=== PATIENT | male | born 1950 | race Caucasian/White ===

== ENCOUNTER 2017-04-08 19:59 | Emergency (ER) | payer MEDICARE, OTHER ==
[~2017-04-08] VITALS: Ht 175.3 cm; Wt 118.0 kg
[~2017-04-08 19:59] MED LIST: HYDR25TA PO; LISI-662 PO; METF500T4 PO; METO25 PO
[2017-04-08] MEDS ORDERED: POVIDONE-IODINE 10% 15 ML SOLUTION UD TP ONE (20:45)
[2017-04-08] MEDS ORDERED: IBUPROFEN 800 MG TABLET PO ONE (21:00)
[2017-04-08] MEDS ORDERED: BUPIVACAINE HCL/PF 0.25% 10 ML VIAL INJ ONE (21:00)
[2017-04-08 21:20] VITALS: BP 135/84
== END 2017-04-08 21:38 | disposition home or self-care (01) ==
LOC: EMS 20:02
DX: S61.216A Laceration without foreign body of right little finger without damage to nail, initial encounter (principal); E11.9 Type 2 diabetes mellitus without complications; I10 Essential (primary) hypertension; W45.8XXA Other foreign body or object entering through skin, initial encounter; Y93.89 Activity, other specified; Y92.89 Other specified places as the place of occurrence of the external cause; Y99.8 Other external cause status
CPT/HCPCS: 12001; 82962; 99283; J3490

== ENCOUNTER 2017-04-11 15:02 | Emergency (ER) | payer MEDICARE, OTHER ==
[~2017-04-11] VITALS: Ht 175.3 cm; Wt 118.2 kg
[2017-04-11 15:29] VITALS: BP 136/74
[2017-04-11 15:37] LABS: GLUCOSE,POINT OF CARE 140 MG/DL (70-110)
== END 2017-04-11 16:28 | disposition home or self-care (01) ==
LOC: EMS 15:04
DX: S61.216D Laceration without foreign body of right little finger without damage to nail, subsequent encounter (principal); I10 Essential (primary) hypertension; E11.9 Type 2 diabetes mellitus without complications
CPT/HCPCS: 82962; 99282

== ENCOUNTER 2017-04-15 11:14 | Emergency (ER) | payer MEDICARE, OTHER ==
[~2017-04-15] VITALS: Ht 175.3 cm; Wt 118.1 kg
[2017-04-15 11:32] VITALS: BP 153/78
[2017-04-15 11:32] LABS: GLUCOSE,POINT OF CARE 175 MG/DL (70-110)
== END 2017-04-15 11:49 | disposition home or self-care (01) ==
LOC: EMS 11:16
DX: Z48.02 Encounter for removal of sutures (principal); I10 Essential (primary) hypertension; E11.9 Type 2 diabetes mellitus without complications
CPT/HCPCS: 82962; 99282